=== PATIENT | male | born 1930 | race Two or more races ===

== ENCOUNTER → 2017-06-18 | Outpatient (CLI) | payer OTHER ==
[~2017-06-18] MED LIST: ATORVASTATIN CA40 MG; DICLOFENAC POTA50 MG PO; LIPITOR20 MG; RAMIPRIL2.5 MG
== END | disposition home or self-care (01) ==
LOC: NUCLEAR 07:00
DX: I20.0 Unstable angina (principal); E78.2 Mixed hyperlipidemia; E11.8 Type 2 diabetes mellitus with unspecified complications; I48.0 Paroxysmal atrial fibrillation
CPT/HCPCS: 78452; 93017; 93306; A9500; J0153

== ENCOUNTER 2017-08-01 08:34 | Outpatient (CLI) | payer OTHER ==
[~2017-08-01] VITALS: Ht 152.4 cm; Wt 81.6 kg
== END 2017-08-01 08:55 | disposition home or self-care (01) ==
LOC: OFIC 805 08:34
DX: H61.23 Impacted cerumen, bilateral (principal); H90.3 Sensorineural hearing loss, bilateral; H93.13 Tinnitus, bilateral; R42 Dizziness and giddiness

== ENCOUNTER 2017-08-29 09:43 | Outpatient (CLI) | payer OTHER | END 2017-08-29 09:45 | disposition home or self-care (01) | LOC: RAD 09:43 | DX: I49.8 Other specified cardiac arrhythmias (principal); Z76.89 Persons encountering health services in other specified circumstances ==

== ENCOUNTER 2020-07-17 10:32 | Inpatient (IN) | payer OTHER ==
[~2020-07-17] VITALS: Ht 172.7 cm; Wt 81.6 kg
[2020-07-17] MEDS ORDERED: CRESTOR20 MG (10:40)
[2020-07-17] MEDS ORDERED: ELIQUIS5 MG (10:41)
[2020-07-17] MEDS ORDERED: NEURONTIN600 M1 (10:41)
[2020-07-17] MEDS ORDERED: PRILOSEC OTC20 MG (10:41)
--- NOTE | 2020-07-17 10:41 | NUR ---
PACIENTE ALERTA Y ORINETADO EN GUS VICENTE ESFERAS EN AMBULANCIA QUIEN REFIERE AL MOMENTO DE PONERSE LOS ZAPATOS SINTIO QUE "SE DESGARRON MUSCULO". REFIERE DOLOR EN DOROTA TORRES.
--- NOTE | 2020-07-17 10:57 | NUR ---
PACIENTE ALERTA Y ORIENTADO EN GUS VICENTE ESFERAS. SE ORIENTA A PACIENTE SOBRE TX MEDICO. REFIERE ENTENDER. SE INICIA CANALIZACION EN ANTEBRAZO RT Y SE ADMINISTRA MEDICAMENTO JOSLYN ORDEN MEDICA.
--- NOTE | 2020-07-17 15:22 | NUR ---
SE RECIBE PTE ALERTA Y ORIENTADO X 3 ESFERAS EN CAMA CON BARANDAS ELEVADAS POR SEGURIDAD EN COMPANIA DE FAMILIAR. PRESENTANDO BUEN PATRON RESPIRATORIO. H/L EN BRAZO DERECHO AREA KARLA DE EDEMA Y ERITEMA. PENDIENTE ABG NOTIFICADOS A . SE MANTIENE EN OBSERVACION POR CAMBIOS EN CONDICION MEDICA.
--- NOTE | 2020-07-17 15:46 | NUR ---
SE NOTIFICAN FATIMAH FRANK.
--- NOTE | 2020-07-17 17:00 | NUR ---
RE-EVALUA PTE. SE EDUCA A PTE SOBRE TX MEDICO. PTE REFIERE COMPRENDER. SE REALIZAN MUESTERAS DE LABORATORIO BAJO MEDIDAS ASEPTICAS. SE ADMINISTRA MEDICAMENTO JOSLYN ORDEN MEDICA.
--- NOTE | 2020-07-17 18:19 | NUR ---
SE RECIBE PACIENTE ALERTA Y ORIENTADO POR VICENTE AL AREA DE CHEST PAIN.SE COLOCA EN CAMA #16,SE CONECTA A MONITOR CARDIACO CON SATUROMETRO. SE ORIENTA DE CONTINUIDAD DE CUIDADOS EN EL AREA. REFERIE ENTENDER.PACIENTE CON H/L EN BRAZO DERECHO AREA KARLA DE EDEMA Y/O ERITEMA.BARANDAS ELEVADAS POR DUNN SEGURIDAD. SE MONITOREA POR CAMBIOS SIGNIFICATIVOS.
--- NOTE | 2020-07-17 19:15 | NUR ---
ORDEN VERBAL DE DR CARMELO PERSON. COMENZAR EN TRIDIL 50MG EN 250ML A 3 MLS/HR. SE REPITE ORDEN A DR CARMELO PERSON. SE COMIENZA A BAJAR MEDICAMENTO A PACIENTE. KARLA DE COMPLICACION Y/O REACCION ADVERSA AL MOMENTO, AREA DE CANALIZACION PATENTE, LOBRE DE EDEMA Y/O ERITEMA.PACIENTE ACOMPANADO DE ESPOSA. SE CONTINUA MONITOREANDO POR CAMBIOS SIGNIFICATIVOS.
[2020-07-19] MEDS ORDERED: ALLOPURINOL100 MG (11:37)
[2020-07-19] MEDS ORDERED: LANTUS SOL100 UNIT/1 (11:38)
[2020-07-19] MEDS ORDERED: FUROSEMIDE20 MG (11:38)
[2020-07-19] MEDS ORDERED: SSD25 GM (11:38)
== END 2020-07-22 06:15 | disposition home or self-care (01) | DRG 292 ==
LOC: ER 10:32 → ICU-2 20:36 → MEDI 07-18 17:50
PROVIDERS: ADMIT Internal Medicine; ATTEND Internal Medicine
PROC: B24BZZZ Ultrasonography of Heart with Aorta (ICD-10-PCS; principal; 2020-07-18)
PROC: 4A12X4Z Monitoring of Cardiac Electrical Activity, External Approach (ICD-10-PCS; 2020-07-18)
DX: I11.0 Hypertensive heart disease with heart failure (principal); I48.20 Chronic atrial fibrillation, unspecified; I16.0 Hypertensive urgency; M54.5 Low back pain; Z79.01 Long term (current) use of anticoagulants; I50.9 Heart failure, unspecified; R09.02 Hypoxemia